=== PATIENT | female | born 1995 | race Caucasian/White ===

== ENCOUNTER → 2023-12-31 08:15 | Outpatient (REF) | payer OTHER, SELFPAY | LOC: WDC 08:15 | PROVIDERS: ATTENDING PHYSICIAN Obstetrics & Gynecology | DX: R59.0 Localized enlarged lymph nodes (principal); N64.59 Other signs and symptoms in breast | CPT/HCPCS: 76642 ==

== ENCOUNTER → 2024-01-14 07:21 | Outpatient (REF) | payer OTHER, SELFPAY | LOC: RAD 07:21 | PROVIDERS: ATTENDING PHYSICIAN Obstetrics & Gynecology | DX: R10.2 Pelvic and perineal pain (principal) | CPT/HCPCS: 76830; 76856 ==